=== PATIENT | female | born 2005 | race Two or more races ===

== ENCOUNTER 2024-09-09 02:33 | Emergency (ER) | payer BC, MEDICAID, SELFPAY ==
[2024-09-09 02:42] VITALS: BP 117/76; PULSE 69; RESP 18; TEMP 36.7; O2SAT 99; BMI 25.0
--- NOTE | 2024-09-09 02:47 | XR_ITS ---
Examination: CT abdomen and pelvis without contrast. Coronal 3-D reconstructions. Sagittal 2-D reconstructions. Date and time of exam:September 09, 2024 1 0631 hrs. Indications: Patient woke up last night with abdominal pain CTDI: vol (mGy): 8.81 DLP: (mGycm): 479 Technique: Axial images of the abdomen have been obtained, 3 mm slice thickness Intravenous contrast material has not been administered. Low dose protocols were performed. One or more of the following dose reduction techniques were used; automated exposure control, adjustment of the mA and/or KV according to patient size, use of iterative reconstruction technique. Findings: No focal liver or splenic lesions Contracted gallbladder No pancreatic or adrenal mass Mild bilateral renal parenchymal scar formation No renal or ureteral calculi, no hydronephrosis Aorta normal size Normal appendix, there are multiple small lymph nodes in the right lower mesentery No bowel obstruction No diverticulitis Contracted urinary bladder Anteverted uterus No pelvic mass Impression: Mild bilateral renal parenchymal scar formation Multiple small lymph nodes in the right lower mesentery, seen with mesenteric adenitis Normal appendix
--- NOTE | 2024-09-09 02:48 | XR_ITS ---
Examination: Pelvic ultrasound, transabdominal, complete Technique: Transabdominal ultrasound of the pelvis performed using grayscale imaging Date and time of exam: September 09, 2024 0333 hrs. Indications: Sudden onset of pelvic pain beginning 2 hours ago Findings: Uterus 8.9 x 3.5 x 4.0 cm Endometrial stripe 11 mm No uterine mass or intrauterine gestation Right ovary 3.0 x 2.1 x 4.0 cm arterial flow Left ovary 3.7 x 2.7 x 3.2 cm arterial flow 21 mm follicular cyst No fluid in the cul-de-sac Impression: No uterine mass or intrauterine gestation Left ovarian follicular cyst
--- NOTE | 2024-09-09 02:49 | PD.EDRME ---
Rapid Medical Screening Exam [facility] Arrival date/time: 09/09/24 02:33 18F with no significant PMH presents to ED with seversl hours of sudden pelvic/lower ab pain and N/V that comes in waves. Patient denies dysuria/hematuria and has never had any sexual activity. Chief Complaint: Abdominal Pain Vital signs: Vital Signs Temperature 98.0 F 09/09/24 02:42 Pulse Rate 69 09/09/24 02:42 Respiratory Rate 18 09/09/24 02:42 Blood Pressure 117/76 09/09/24 02:42 Pulse Oximetry (%) 99 09/09/24 02:42 Oxygen Delivery Method Room Air 09/09/24 02:42
[2024-09-09] MEDS: KETOROLAC INJ 60 MG/2 ML VIAL IM (02:57)
[2024-09-09] MEDS: ONDANSETRON ODT 4 MG TABRAP PO (02:57)
[2024-09-09 03:06] LABS: Basophils # (Auto) 0.1 Thou/mm3 (0.0-0.2); Basophils % (Auto) 1 % (0-2.5); Eosinophils # (Auto) 0.3 Thou/mm3 (0.0-0.5); Eosinophils % (Auto) 2 % (0-10); Hemoglobin 13.5 g/dL (12.0-16.0); Immature Granulocytes % (Auto) 0 % (0-0); Immature Granulocytes Auto 0.02 Thou/mm3 (0.00-0.00); Lymphocytes # (Auto) 5.8 Thou/mm3 (1.0-5.0); Lymphocytes % (Auto) 48 % (10-50); Mean Corpuscular HGB Conc 35.5 g/dl (31.0-37.0); Mean Corpuscular Volume 87 fL (80-100); Monocytes # (Auto) 1.1 Thou/mm3 (0.0-0.8); Monocytes % (Auto) 9 % (0-12); Neutrophils # (Auto) 4.9 Thou/mm3 (1.8-7.7); Neutrophils % (Auto) 40 % (37-80); Nucleated Red Blood Cell % 0 /100 WBC (0); Platelet Count 311 Thou/mm3 (140-440); RDW Standard Deviation 38.6 fL (36.4-46.3); Red Blood Count 4.36 Miln/mm3 (4.00-5.20); White Blood Count 12.2 Thou/mm3 (4.5-11.0)
[2024-09-09 03:25] LABS: Alanine Aminotransferase 11 U/L (10-49); Albumin, Serum 4.9 gm/dL (3.5-5.0); Albumin/Globulin Ratio 1.8 (1.2-2.2); Alkaline Phosphatase 52 U/L (46-116); Anion Gap 10 (7-16); Aspartate Amino Transferase 16 U/L (0-34); BUN/Creatinine Ratio 11 Ratio (12-20); Bilirubin,Total 0.3 mg/dL (0.3-1.2); Blood Urea Nitrogen 10 mg/dL (9-23); Calcium 9.4 mg/dL (8.3-10.6); Calcium (Corrected) 9.4 mg/dL (8.5-10.1); Carbon Dioxide 22.6 mMol/L (20.0-31.0); Chloride 106 mMol/L (98-107); Creatinine (Component) 0.9 mg/dL (0.6-1.3); Estimated Creatinine Clearance 97.8 mL/min (>60); Globulin 2.8 gm/dL (2.3-3.5); Glucose 135 mg/dL (74-106); Lipase 30 U/L (12-53); Osmolality,Calculated 278 (275-295); Potassium 3.1 mMol/L (3.4-5.1); Sodium 139 mMol/L (136-145); Total Protein 7.7 gm/dL (5.7-8.2); eGFR > 60 See Note
--- NOTE | 2024-09-09 05:02 | PRELIM_ITS ---
Pelvic ultrasound (transabdominal). September 09, 2024 at 0333 hours Clinical history: Sudden pelvic p ain. LMP 07/05/2024.Irregular menses. Technique: Real-time, grayscale, transabdominal pelvic ultrasou nd was performed using Duplex scanning including arterial inflow, venous outflow, color and spectral Doppler.Findings:The uterus is normal in size measuring 8.9 x 3.5 x 4 cm. The endometrium is unremark able and measures 1.1 cm. The right ovary measures 3 x 2.1 x 4 cm and is unremarkable. The left ovary measures 3.7 x 2.7 x 3.2 cm and demonstrates a 2.1 x 1.3 x 1.5 cm anechoic structure.Both ovaries de monstrate color flow and spectral waveforms on Doppler evaluation.There is no adnexal mass. There is no free fluid on the submitted images. Impression:No sonographic evidence of ovarian torsion is demon strated on the submitted images. Left ovarian cyst. Recommend follow-up. Report Electronically Teri d By: Ry Mcdonald 09/09/2024 5:01:32 AM [EST]
[2024-09-09 05:37] LABS: Path Review Blood Smear Sent to Pathologist
[2024-09-09 06:16] LABS: Bilirubin,Urine Negative (Negative); Blood,Urine Trace (Negative); Clarity,Urine Turbid (Clear/Hazy); Collection Type, Urine Clean Catch; Color,Urine Yellow (Lt Yel-Yel); Culture Indicated,Urine Not Indicated; Glucose, Urine Negative (Negative); Hyaline Casts,Urine < 1 /hpf (0-1); Ketones,Urine Negative (Negative); Leukocyte Esterase,Urine Negative (Negative); Nitrite,Urine Negative (Negative); PH,Urine 5.5 (5.0-7.0); Protein,Urine 1+ (Neg - Trace); RBC,Urine 1 /hpf (0-3); Specific Gravity,Urine 1.029 (1.001-1.035); Squamous Epithelial Cell,Urine 20 /hpf (0-5); WBC,Urine 0 /hpf (0-5)
[2024-09-09 06:26] LABS: HCG Qualitative,Urine Negative
[2024-09-09 07:02] LABS: Amphetamine/Methamp Scrn,U Negative (Negative); Barbiturate Screen,Urine Negative (Negative); Benzodiazepines Screen,Urine Negative (Negative); Benzoylecgonine Screen, Ur Negative (Negative); Fentanyl Screen,Urine Negative (Negative); Opiate Screen,Urine Negative (Negative); THC Screen,Urine Positive (Negative)
[2024-09-09 07:34] VITALS: BP 114/66; PULSE 52; RESP 16; TEMP 36.7; O2SAT 99
--- NOTE | 2024-09-09 07:36 | PC.NURSE ---
PT IN TODAY FOR ABD PAIN THAT STARTED THIS MORNING. PT STATES THAT THE PAIN IS SHARP AND RATES IT AT 5/10 AT THIS TIME. ON ASSESSMENT PT IDENTIFIES THE PAIN TO BE IN THE MIDDLE LOWER ABD. PT DID STATES THAT SHE HAS URGENCY WIT URINATION. PT IS A/OX4 AND FAMILY IS AT THE BEDSIDE.
--- NOTE | 2024-09-09 08:16 | PD.EDABDPN ---
ED Abdominal Pain RME/HPI General Chief Complaint: Abdominal Pain Stated complaint: abd pain Time seen by provider: 09/09/24 08:08 Arrival date/time: 09/09/24 02:33 Limitations: no limitations RME / HPI RME / HPI narrative: 09/09/24 02:33 18F with no significant PMH presents to ED with seversl hours of sudden pelvic/lower ab pain and N/V that comes in waves. Patient denies dysuria/hematuria and has never had any sexual activity. DR. VI AMADOR ED EVALUATION: 18 year old female with no stated medical history presents to the ED for complaint of abdominal pain beginning hours [employer]. Described as sharp in sensation, located most across lower abdomen, rating as moderate. Accompanied by nausea. Denies any history of similar pain. Denies fevers, chills, chest pain, cough, shortness of breath, vomiting, diarrhea, constipation, or urinary symptoms. Mentioned her first day of LMP was 08/02/2024. Denies . Related Data Previous Rx's ?Medication ?Instructions ?Recorded ibuprofen 600 mg tablet 600 mg PO QID PRN fever or pain 03/24/22 #30 tabs Allergies Allergy/AdvReac Type Severity Reaction Status Date / Time Penicillins Allergy Unknown RASH Verified 09/09/24 02:35 Review of Systems Review of Systems Narrative Review of Systems: GEN: No fever, no chills, no weight loss EYES: No discharge, no visual changes, no pain HEENT: No ear pain, no congestion, no sore throat PULM: No shortness of breath, no cough, no congestion CV: No chest pain, no dyspnea on exertion, no palpitations GI: + nausea, no vomiting, no diarrhea, + pain, no constipation : No frequency, no urgency, no dysuria MUSC/SKEL: No joint pain, no back pain SKIN: No rash NEURO: No weakness, no headache Past Medical History Past Medical History CARDIAC: Negative Cardiac Disorders or Congestive Heart Failure RESPIRATORY: Negative Chronic Obstructive Pulmonary Disease (COPD) or Asthma GENITOURINARY: Negative Renal Disease ENDOCRINE: Negative Diabetes Mellitus Type 1 or Diabetes Mellitus Type 2 HEMATOLOGIC: Negative Sickle Cell Disease Family History FAMILY HISTORY: Positive Family Cardiac Disorders Social History SMOKING STATUS: Never smoker ED Exam General Limitations: Present no limitations General appearance: Present alert and in no apparent distress Head Head exam: Present atraumatic, normocephalic and normal inspection Eye Eye exam: Present normal appearance, PERRL and EOMI ENT ENT exam: Present normal exam, normal oropharynx and mucous membranes moist Neck Neck exam: Present normal inspection, full ROM and trachea midline Chest Chest inspection: Present normal inspection and symmetric chest wall rise Respiratory Respiratory exam: Present normal lung sounds bilaterally Cardiovascular Cardiovascular exam: Present regular rate, normal rhythm and normal heart sounds Abdominal Exam Abdominal exam: Present soft and normal bowel sounds; Absent distention, tenderness, guarding, rebound or rigidity Extremities Exam Extremities exam: Present normal inspection and full ROM Back Exam Back exam: Present normal inspection and full ROM Neurological Exam Neurological exam: Present alert, oriented X3 and CN II-XII intact Psychiatric Psychiatric exam: Present normal affect and normal mood Skin Skin exam: Present warm, dry, intact and normal color Course Quality Measures none Orders Category Date Time Status CT abdomen pelvis wo con Stat Exams 09/09/24 02:47 Completed US pelvic complete Stat Exams 09/09/24 02:48 Completed CBC Stat Lab 09/09/24 03:00 Completed CMP [Comprehensive Metabolic Panel] Stat Lab 09/09/24 03:00 Completed Drug Screen,Urine Stat Lab 09/09/24 05:27 Completed HCG Qualitative,Urine Stat Lab 09/09/24 02:47 Completed Lipase Stat Lab 09/09/24 03:00 Completed Path Review Blood Smear Stat Lab 09/09/24 03:00 Completed Urinalysis, C/S if Indicated Stat Lab 09/09/24 02:47 Completed Ketorolac Inj [Toradol Inj] Med 09/09/24 02:47 Discontinued 60 mg IM X1 ONE Ondansetron Odt [Zofran Odt] Med 09/09/24 02:47 Discontinued 4 mg PO X1 ONE Reevaluation(s) Reevaluation #1: Patient remains clinically stable throughout the emergency department visit. We reviewed all the results, analysis, and treatment plans. Patient is amenable to discharge. Strict return precautions were outlined. Patient was discharged in stable condition. Time: 08:18 Vital Signs Vital signs: Vital Signs Temperature 98.0 F 09/09/24 02:42 Pulse Rate 69 09/09/24 02:42 Respiratory Rate 18 09/09/24 02:42 Blood Pressure 117/76 09/09/24 02:42 Pulse Oximetry (%) 99 09/09/24 02:42 Oxygen Delivery Method Room Air 09/09/24 02:42 Pulse ox is 99% on room air which is adequate. Abdominal Pain MDM MDM Narrative MDM Narrative:: I, Amandawenceslao Long, nilson scribing for and in the presence of Dr. Gregory. Patient data External records reviewed:: [facility] previous records (I reviewed ED visit on 12/30/2023) Clinical information provided by:: patient Social determinants that could affect healthcare access:: none Patient has the following chronic illnesses:: None How is presenting disease/condition affected by chronic disease/condition?: no chronic disease Evaluation data The following diagnostics were reviewed and interpreted by me:: lab results and radiology exam(s) Lab and/or radiology exams considered but not ordered:: None Interpretation Summary: Ordering Physician: Low Mills PA-C Date of Service: 09/09/24 Procedure(s): CT abdomen pelvis wo con Accession Number(s): [id number] cc: George Sheldon MD; NO PRIMARY/FAMILY,PHYSICIAN; Low Mills PA-C~ Examination: CT abdomen and pelvis without contrast. Coronal 3-D reconstructions. Sagittal 2-D reconstructions. Date and time of exam:September 09, 2024 1 0631 hrs. Indications: Patient woke up last night with abdominal pain CTDI: vol (mGy): 8.81 DLP: (mGycm): 479 Technique: Axial images of the abdomen have been obtained, 3 mm slice thickness Intravenous contrast material has not been administered. Low dose protocols were performed. One or more of the following dose reduction techniques were used; automated exposure control, adjustment of the mA and/or KV according to patient size, use of iterative reconstruction technique. Findings: No focal liver or splenic lesions Contracted gallbladder No pancreatic or adrenal mass Mild bilateral renal parenchymal scar formation No renal or ureteral calculi, no hydronephrosis Aorta normal size Normal appendix, there are multiple small lymph nodes in the right lower mesentery No bowel obstruction No diverticulitis Contracted urinary bladder Anteverted uterus No pelvic mass Impression: Mild bilateral renal parenchymal scar formation Multiple small lymph nodes in the right lower mesentery, seen with mesenteric adenitis Normal appendix Dictated By: George Sheldon MD Signed By: <Electronically signed by George Sheldon MD in OV> 09/09/24 0747 Ordering Physician: Date of Service: Procedure(s): Accession Number(s): cc: ~ Pelvic ultrasound (transabdominal). September 09, 2024 at 0333 hours Clinical history: Sudden pelvic pain. LMP 07/05/2024.Irregular menses. Technique: Real-time, grayscale, transabdominal pelvic ultrasound was performed using Duplex scanning including arterial inflow, venous outflow, color and spectral Doppler. Findings: The uterus is normal in size measuring 8.9 x 3.5 x 4 cm. The endometrium is unremarkable and measures 1.1 cm. The right ovary measures 3 x 2.1 x 4 cm and is unremarkable. The left ovary measures 3.7 x 2.7 x 3.2 cm and demonstrates a 2.1 x 1.3 x 1.5 cm anechoic structure. Both ovaries demonstrate color flow and spectral waveforms on Doppler evaluation. There is no adnexal mass. There is no free fluid on the submitted images. Impression: No sonographic evidence of ovarian torsion is demonstrated on the submitted images. Left ovarian cyst. Recommend follow-up. Report Electronically Signed By: Ry Mcdonald 09/09/2024 5:01:32 AM [EST] Medications / Prescriptions Medications or Prescriptions considered but not ordered:: None Medication administrations:: Medication Administration History Discontinued Medications Ketorolac Tromethamine (Ketorolac Inj 60 Mg/2 Ml Vial) 60 mg IM X1 ONE Stop: 09/09/24 02:48 Last Admin: 09/09/24 02:57 Dose: 60 mg Documented By: KG Ondansetron HCl (Ondansetron Odt 4 Mg Tabrap) 4 mg PO X1 ONE; Protocol Stop: 09/09/24 02:48 Last Admin: 09/09/24 02:57 Dose: 4 mg Documented By: KG See above Consultations Consultation(s) initiated? (list below): No Diagnosis Differential diagnosis abdominal pain: abdominal pain, acute appendicitis, calculus of kidney and constipation Most likely diagnosis given after review of the tests above:: Mesenteric adenitis Abdominal pain Admission Indicated Admission indicated?: not indicated Admission Request Was there a request for admission?: No Disposition Plan Disposition Plan: Discharge Discharge Attestation Discharge Attestation: The patient and all family members were given an opportunity to ask questions and understood the discharge instructions. Discharge instructions specifically effects, indications for sooner follow up or return to the emergency department, and the expected course of current diagnosis. Patient condition: Stable Discharge Plan Plan Patient Disposition: HOME (Self Care) Disposition Comment: Stable for discharge Patient condition on transfer: Stable Prescriptions/Referrals Prescriptions/Med Rec: No Action ibuprofen 600 mg tablet 600 mg PO QID PRN (Reason: fever or pain) Qty: 30 0RF [facility]errals: [facility]Outside[facility] - In 1 week No Primary/Family,Physician [Primary Care Provider] - In 1 week Problem List Clinical Impression: Abdominal pain, Mesenteric adenitis Patient/Caregiver Discharge Instructions Discharge Activity: activity as tolerated Education Materials: Abdominal Pain, ED Adenitis, Mesenteric Additional Instructions: Please return to the emergency department for any worsening or any further medical problems You should follow-up with your primary care doctor within the next several days The CAT scan and the ultrasound that we performed during your ER visit both were basically normal. The CAT scan did show some mild mesenteric adenitis which is mild inflammation of the lymph nodes in your abdomen. This is a nonspecific finding. If you feel worse in any way you should return right away to the ER Make sure that you eat lots of bananas and take a multivitamin every day. Your potassium was a little bit low today Print Language: Malay Stand Alone Forms: Valerie Award Info., Patient Portal Info Letter
[2024-09-09 08:34] VITALS: BP 129/66; PULSE 61; O2SAT 98
== END 2024-09-09 08:35 | disposition home or self-care (01) ==
PROVIDERS: Physician Assistant; Emergency Provider Emergency Medicine
DX: I88.0 Nonspecific mesenteric lymphadenitis (principal); N83.202 Unspecified ovarian cyst, left side; N28.89 Other specified disorders of kidney and ureter
CPT/HCPCS: 36415; 74176; 76856; 80053; 80307; 81001; 81025; 83690; 85025; 96372; 99284; J1885; Q0162